=== PATIENT | male | born 2005 | race Caucasian/White ===

== ENCOUNTER 2025-09-29 08:19 | Emergency (ER) | payer BC, SELFPAY ==
--- NOTE | ~2025-09-29 | XR_ITS ---
CLINICAL HISTORY: L rib pain 4 view, chest and left ribs Comparison: None provided Findings: Up to 2 mm distracted likely acute (in the vicinity of the placed marker) oblique fracture of the posterolateral aspect of the left 11th rib. Otherwise no acute fracture. The lungs are unremarkable. IMPRESSION: Up to 2 mm distracted likely acute (in the vicinity of the placed marker) oblique fracture of the posterolateral aspect of the left 11th rib. This document has been electronically signed by: Griselda Singh MD on 09/29/2025 10:50:12
[2025-09-29 08:21] VITALS: BP 119/68; PULSE 75; RESP 14; TEMP 36.1; O2SAT 99; BMI 21.9
[2025-09-29 10:06] VITALS: BP 134/69; PULSE 74; RESP 16; O2SAT 98
--- NOTE | 2025-09-29 10:36 | ED_ITS ---
HPI - General Adult General Chief complaint: Back Pain/Injury Stated complaint: back pain Time Seen by Provider: 09/29/25 08:32 Source: patient and RN notes reviewed Mode of arrival: ambulatory Limitations: no limitations History of Present Illness ED Provider: Valerie Kumar PA-C HPI narrative: This is a 20-year-old male who presents emergency department accompanied by his with concerns of left-sided flank pain which started 2-3 weeks ago. Patient denies any recent trauma or injury. Denies any recent heavy lifting. Patient states that he has been in his usual state of health, no recent illness. Denies any recent travel, surgery, hospitalizations. No history of blood clots or cancer. He does not smoke tobacco. Patient denies any shortness for breath however is taking shallow breaths secondary to pain. Patient states that earlier today while he was coughing he felt a popping sensation and had increased pain. Denies any abdominal pain. Denies any fevers, chills, chest pain, nausea, vomiting or diarrhea. No other complaints or concerns at this time. MD complaint: Left-sided rib pain Onset (ago): week(s) Quality: sharp Pain Consistency: constant Relieving factors: rest Exacerbating factors: movement Treatments prior to arrival: none Related Data Previous Rx's ?Medication ?Instructions ?Recorded acetaminophen 500 mg tablet 500 mg PO Q6H PRN pain #30 tabs 09/29/25 (Tylenol Extra Strength) ibuprofen 600 mg tablet 600 mg PO Q6H PRN pain #30 t abs 09/29/25 lidocaine 5 % topical patch 1 patch topical DAILY #30 ea 09/29/25 Allergies Allergy/AdvReac Type Severity Reaction Status Date / Time shellfish derived Allergy Itching Verified 09/29/25 08:22 Review of Systems Review of Systems: Constitutional : No Fever, No Chills ENT/Mouth : No sore throat, No Rhinorrhea Eyes: No Eye Pain, No Swelling, No Redness Cardiovascular : No Chest Pain, No SOB Respiratory : No Cough, No Sputum Gastrointestinal : No Nausea, No Vomiting, No Diarrhea, No abdominal Pain Genitourinary : No Dysuria, No Hematuria Musculoskeletal : No joint pain, No Myalgias, No Joint Swelling Skin : No Skin Lesions Neuro : No Weakness, No Numbness, No Headache All other systems reviewed and are negative Yes all other systems are reviewed and are negative Constitutional: Constitutional: Reports as per [facility] Social History Social History Advance Directives: No Advance Directives Information Provided: Yes Physical Exam ED Vital Signs: Vital Signs - 24 hr 09/29/25 08:21 09/29/25 10:06 Temperature 97.0 F Pulse Rate 75 74 Respiratory Rate 14 16 Blood Pressure 119/68 134/69 Pulse Oximetry 99 98 Oxygen Delivery Method Room Air Room Air BMI result Body Mass Index 21.9 Const General: cooperative, comfortable and no acute distress Orientation/consciousness: patient oriented x3 Limitations: no limitations HENMT Head: Yes normal to inspection, Yes normocephalic and Yes atraumatic Ears: hearing grossly normal bilaterally General nose exam: Normal external nose present Face and sinus: Yes normal facial exam Mouth: Normal oral and palatal mucosa present, oropharynx normal and moist mucous membranes Throat: Yes posterior oropharynx normal Eyes General: appearance normal, both eyes and all related structures Eyelids: Yes eyelids normal Conjunctivae: conjunctivae normal Sclerae: sclerae normal Pupils: Equal, round and reactive pupils present EOM: EOMs intact bilaterally Neck Neck: Yes normal visual inspection, Yes full ROM and Yes no lymphadenopathy Lymphatic: no lymphadenopathy noted Chest Chest palpation & inspection: normal inspection of the chest Resp Effort & Inspection: normal respiratory effort and able to speak in complete sentences Auscultation: clear to auscultation bilaterally, no crackles, no rales, no rhonchi and no wheezes Cardio Rate: regular rate Rhythm: regular rhythm Heart sounds: S1 normal heart sound present and S2 normal heart sound present GI Other: Abdomen is soft, nontender, nondistended Inspection: Yes normal to inspection Back/Spine/Pelvis Other: Left anterior-posterior rib tenderness palpation, no bony step-off or deformity. Skin General skin exam: no rashes or lesions noted Trauma: no lacerations or abrasions Wounds: no wounds Neuro General: patient oriented x3 and moves all extremities Cranial nerves: Yes Equal, round and reactive pupils present Extrem General: Yes normal to inspection Right upper extremity: normal to inspection Left upper extremity: normal to inspection Right lower extremity: normal to inspection Left lower extremity: normal to inspection Medications Administered Discontinued Medications Generic Name Dose Route Start Last Admin Trade Name Freq PRN Reason Stop Dose Admin Acetaminophen 975 mg 09/29/25 10:07 09/29/25 10:18 Acetaminophen 325 Mg Tablet PO 09/29/25 10:08 975 mg ONCE ONE Administration Ibuprofen 600 mg 09/29/25 10:07 09/29/25 10:18 Ibuprofen 600 Mg Tablet PO 09/29/25 10:08 600 mg ONCE ONE Administration Medical Decision Making Medical Decision Making [facility] Narrative: This is a 20-year-old male who presents emergency department with complaints of left-sided rib pain which started 2-3 weeks ago, worsening over the last day. Patient states that he stays this morning and felt a popping sensation. On arrival, vital signs within normal limits. He is speaking full sentences under no acute distress. Denies taking any medications prior to his arrival. Patient with exquisite tenderness palpation along the left anterior and posterior ribs, no bony step-off or deformity. Differential diagnoses include rib fracture, contusion, sprain, strain, pneumothorax. Will medicate with Tylenol and ibuprofen. We will continue to closely monitor pending x-rays. 11:22 AM 09/29/2025 (Valerie Kumar PA-C): Patient re-evaluated, feeling much better after receiving ibuprofen and Tylenol. X-ray returned revealing a 2 mm distracted likely acute oblique fracture of the posterior lateral aspect of the 11th rib. Lungs are otherwise unremarkable. Patient has no shortness for breath, chest pain, in no evidence of pneumothorax. Lungs are clear to auscultation bilaterally. Discussed this with my attending physician, Dr. Callahan. Recommended continuing ibuprofen and Tylenol at home, ice, we will also provide patient with lidocaine patches. Differential Diagnosis Differential Diagnoses: The differential diagnosis associated with the presentation includes See above Admission/Observation Consideration of admission/observation: Escalation of care including admission/observation considered Lab Data [facility] Lab Attestation statement: I reviewed the patient's lab results. Radiology Impression Discussion of test interpretation with radiology: I have reviewed the radiologist's reading. External Record Review External record reviewed: Inpatient record, Office record, Outpatient record, Prior outpatient labs, Prior outpatient radiology, Primary care record and Outside ED record Discharge Plan Discharge Clinical Impression: Left rib fracture Patient Disposition: Home, Self-Care Instructions: Rib Fracture (ED) Additional Instructions: You were seen in the emergency department after developing left-sided rib pain. You have fractured your left 11th rib. Please rest, ice, and alternate between ibuprofen and or Tylenol as needed for pain and symptoms. When you have to cough or sneeze, brace yourself. You may do this by applying pressure on the side that is causing you pain, or using a pillow to gently apply pressure trying the coughing her sneezing episodes. No heavy lifting until your symptoms have resolved. You may also use lidocaine patches to roughly since can. This can provide you with some relief. Do not apply heat or ice directly to the lidocaine patches as this can cause thermal peralta. If any new or worsening symptoms occur including but not limited to severe shortness of breath, chest pain, fevers, please seek emergent care. We are unfortunately unable to accommodate any restrictions in regards to your work therefore please follow-up with a primary care urgent care facility if you need more additional restrictions for work. Prescriptions: New ibuprofen 600 mg tablet 600 mg PO Q6H PRN (Reason: pain) Qty: 30 0RF acetaminophen [Tylenol Extra Strength] 500 mg tablet 500 mg PO Q6H PRN (Reason: pain) Qty: 30 0RF lidocaine 5 % adhesive patch,medicated 1 patch topical DAILY Qty: 30 0RF Rx Instructions: leave on most painful area for up to 12 hrs Referrals: [facility] Primary Care, Dulce [Provider Group, Internal Medicine] [facility] Primary Care, Luiz [Provider Group, Internal Medicine] [facility] Primary Care, Julius Holm [Provider Group, Primary Care] Stand Alone Forms: Work/School Release Print Language: Kinyarwanda
[2025-09-29 12:09] VITALS: BP 134/69; PULSE 74; RESP 16; TEMP 36.7; O2SAT 98
== END 2025-09-29 12:10 | disposition home or self-care (01) ==
PROVIDERS: Emergency Provider Emergency Medicine Emergency Medical Services
DX: S22.32XA Fracture of one rib, left side, initial encounter for closed fracture (principal); R10.A2 Flank pain, left side; R07.89 Other chest pain; X58.XXXA Exposure to other specified factors, initial encounter; Y93.9 Activity, unspecified; Y92.9 Unspecified place or not applicable; Y99.9 Unspecified external cause status
CPT/HCPCS: 71101; 99283; 99284

== ENCOUNTER → 2025-09-29 10:07 | Outpatient (BNV) | payer BC, SELFPAY | PROVIDERS: Emergency Provider Emergency Medicine Emergency Medical Services; Visit Provider Radiology Diagnostic Radiology | DX: R07.89 Other chest pain (principal) | CPT/HCPCS: 71101 ==

== ENCOUNTER 2025-10-17 15:00 | Outpatient (AMB) | payer BC, SELFPAY ==
--- NOTE | 2025-10-17 15:13 | MHC.PC.OV ---
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 Transferring care from Dr Navas? (Unknown). Medical records have not been requested and have not received. 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 Accompanied by: Spouse Allergies shellfish derived Allergy (Verified 10/17/25 15:14) Itching Medication List - Last Reconciled 10/17/25 by Margarita Torres MD clotrimazole-betamethasone 1-0.05 % 1 appl topical BID 2 weeks escitalopram oxalate 10 mg PO DAILY Tobacco use date assessed: 10/17/25 Dental Screening Dental Screen Date: 10/17/25 Did you have a dental visit in the last 12 months?: No Did you have a dental problem in the last 6 months where you did not have access to dental care?: No Was dental information given to patient?: No HPI HPI Comments History of Present Illness Details Patient is a 20-year-old male presenting to establish care. Patient was seen in the ED on 09/29/2025 for left-sided flank pain, found to have acute oblique fracture of the posterior lateral aspect of the 11th rib on x-ray. He was discharged on ibuprofen 600 mg q.6 hours as needed and Tylenol as well as lidocaine patches. Patient states that he feels much better, pain resolved and does not use ibuprofen anymore. Patient reports history of anxiety on escitalopram, not sure about the dose but thinks it is 10 mg daily. The prescription was from an online therapy service which the patient has not attended for the past year. The patient has a surplus of the medication and stopped the subscription a few months ago. The patient also reports a possible diagnosis of ADHD or a similar condition as a child, which was not pursued by the patient's parents, and is now requesting a formal evaluation. The patient has had a painful, non-itchy rash on the inner thighs for a few months. but denies any pus or discharge. The patient has tried moisturizers without success. The patient also reports loud noises from the knees, particularly when squatting, but denies any associated pain or swelling. There is a remote history of a stretched tendon in the knee as a child, and the patient reports very infrequent nocturnal leg pain. Surgical history remarkable for tonsillectomy as a kid. Family history remarkable for maternal grandmother with hypertension, diabetes, heart attack and stroke. For social history, patient lives with his , works at [employer] and goes to college, studying computer science. Smokes marijuana every day from a vape pen, but denies tobacco use or illicit drug use. No alcohol use. [facility] Surgical History (Updated 10/17/25 @ 15:22 by DEIDRE Landa) History of tonsillectomy Social History (Updated 10/17/25 @ 15:22 by DEIDRE Landa) Housing: Apartment Alcohol intake: never Patient Tobacco Use Status: Never used Tobacco e-Cigarette/Vaping Use: Never Used Second Hand Smoke Exposure: No Substance Use Type: Marijuana service: No Current occupational status: employed Current occupation: [employer] Cognitive needs: No Hearing needs: No Vision needs: No Questionnaire PHQ-9 Over the last 2 weeks, how often have you been bothered by any of the following problems? 1. Little interest or pleasure in doing things: not at all 2. Feeling down, depressed, or hopeless: not at all 3. Trouble falling or staying asleep, or sleeping too much: not at all 4. Feeling tired or having little energy: not at all 5. Poor appetite or overeating: not at all 6. Feeling bad about yourself - or that you are a failure or have let yourself or your family down: not at all 7. Trouble concentrating on things, such as reading the newspaper or watching television: not at all 8. Moving or speaking so slowly that other people could have noticed. Or the opposite - being so fidgety or restless that you have been moving around a lot more than usual: not at all 9. Thoughts that you would be better off or of hurting yourself in some way: not at all Total score: 0 Depression Screening Interpretation: Negative Depression Screening Done: Yes Source: Developed by Melody Lemus.W. Chiki, Gerald Yates and colleagues, with an educational mandy from [employer]. Thrive Questionnaire Date Thrive assessed: 10/15/25 I am a: Patient What is your living situation today?: I have a steady place to live Within the past 12 months, did the food you bought not last and you didn't have the money to get more?: Never true Within the past 12 months, did you worry whether your food would run out before you got money to buy more?: Never true Do you have trouble paying for medicines?: No Do you have trouble getting transportation to medical appointments?: No Do you have trouble paying your heating and electricity bill?: No Do you have trouble taking care of your child, family member or friend?: No Do you have trouble with day-to-day activities such as bathing, preparing meals, shopping, managing finances, etc.?: No Are you currently unemployed and looking for a job?: No Are you interested in more education?: No Please select the resources that you would like help with: None Currently or been in a relationship where the following occur: No concerns reported THRIVE Score: 0 AUDIT C Alcohol Use Questionnaire (AUDIT-C) 1. How often do you have a drink containing alcohol?: Monthly or less 2. How many drinks containing alcohol do you have on a typical day when you are drinking?: 1 or 2 3. How often do you have six or more drinks on one occasion?: Never Total Score: 1 NURIA-7 AMB Questionnaire NURIA-7 Date NURIA - 7 assessed: 10/17/25 Feeling nervous, anxious, or on edge: 3 = Nearly every day Not being able to stop or control worryin = Nearly every day Worrying too much about different things: 3 = Nearly every day Trouble relaxin = Nearly every day Being so restless that it is hard to sit still: 3 = Nearly every day Becoming easily annoyed or irritable: 3 = Nearly every day Feeling afraid as if something awful might happen: 3 = Nearly every day Total NURIA-7 score (0-4 normal; 5-9 mild; 10-14 moderate; 15-21 severe): 21 Source: Developed by Drs. Raffi Lizarraga, Gerald Galindo and colleagues, with an educational mandy from [employer]. Physical exam (Primary Care) Vital Signs: Last Vital Signs Temp 97.1 F 10/17/25 15:15 Pulse 74 10/17/25 15:15 BP 120/78 10/17/25 15:15 Pulse Ox 98 10/17/25 15:15 Oxygen Delivery Method Room Air 10/17/25 15:15 General: Well-appearing, alert, oriented ?3, in no acute distress. Cardiovascular: RRR, S1-S2 appreciated, no murmurs, rubs or gallops. Respiratory: Lungs clear to auscultation bilaterally, no wheezes, rales or rhonchi. Abdomen: Soft, nontender, nondistended. Normoactive bowel sounds. Knees: Bilateral knees symmetrical, no swelling or erythema noted. Upon squatting, loud cracking noise elicited. Skin: Erythematous rash in bilateral inguinal folds, no vesicles, bumps or lumps or pus noted BMI result Body Mass Index 23.5 Tobacco/Smoking Status: Tobacco use Status Tobacco use date assessed 10/17/25 10/17/25 15:23 Patient Tobacco Use Status Never used Tobacco 10/17/25 15:23 e-Cigarette/Vaping Use Never Used 10/17/25 15:23 PHQ-9: PHQ-9 Score PHQ-9: Total score 0 10/17/25 15:23 Depression Screening Interpretation: Negative Thrive Assessment: Date of Thrive Assessment Date Thrive assessed 10/15/25 10/17/25 15:23 Currently or been in a relationship where the following occur: No concerns reported Coding Level of Care Code New Pt Level 4 (72077) Diagnoses Establishing care with new doctor, encounter for Z76.89 Groin rash R21 Anxiety F41.9 Knee pain, unspecified chronicity, unspecified laterality M25.569 Chronicity: unspecified Laterality: unspecified laterality Assessment & Plan Assessment & Plan (1) Establishing care with new doctor, encounter for: Code(s): Z76.89 - Persons encountering health services in other specified circumstances Plan: Patient presenting to establish care (2) Groin rash: Code(s): R21 - Rash and other nonspecific skin eruption Category: Medical Plan: The patient presents with a painful rash on the inner thighs for months, without vesicles, bullae or pus. Consistent with dermatitis, possibly from shaving, with a potential superimposed fungal infection. Start clotrimazole-betamethasone cream to apply twice daily for 2 weeks. Keep area dry and clean at all times (3) Anxiety: Code(s): F41.9 - Anxiety disorder, unspecified Category: Medical Plan: Patient reports that his anxiety is manageable, currently on escitalopram 10 mg daily. The patient also reports a possible diagnosis of ADHD or a similar condition as a child, which was not pursued by the patient's parents, and is now requesting a formal re-evaluation. Psychiatry referral provided. (4) Knee pain: Code(s): M25.569 - Pain in unspecified knee Qualifiers: Chronicity: unspecified Laterality: unspecified laterality Qualified Code(s): M25.569 - Pain in unspecified knee Plan: Patient presenting with bilateral knee crackling upon squatting, with occasional pain. Denies swelling, no knee surgeries, no trauma to the knee. Denies hyperlaxity of other joints. An x-ray of the knees ordered for further evaluation. Orders: Orders XR Knee Jesse 3V Today M25.561 - Pain in right knee, M25.562 - Pain in left knee Complete Blood Count Auto Diff Today Z00.00 - Encounter for general adult medical examination without abnormal findings Lipid Panel with Reflex Today Z00.00 - Encounter for general adult medical examination without abnormal findings HIV Ab/Ag Today Z11.4 - Encounter for screening for human immunodeficiency virus [HIV] Comprehensive Met. Panel Today Z00.00 - Encounter for general adult medical examination without abnormal findings Hepatitis B Core Antibody Today Z11.59 - Encounter for screening for other viral diseases Referrals Psychiatry Referral F90.9 - Attention-deficit hyperactivity disorder, unspecified type Medications: New clotrimazole-betamethasone 1-0.05 % 1 appl topical BID 15 grams 0RF tinea 2 weeks Discontinued acetaminophen (Tylenol Extra Strength) Discontinued Reason: Patient Completed Course 500 mg PO Q6H PRN 30 tabs 0RF pain lidocaine 5% leave on most painful area for up to 12 hrs Discontinued Reason: Patient Completed Course 1 patch topical DAILY 30 ea 0RF ibuprofen Discontinued Reason: Patient Completed Course 600 mg PO Q6H PRN 30 tabs 0RF pain
[2025-10-17 15:15] VITALS: BP 120/78; PULSE 74; TEMP 36.2; O2SAT 98; BMI 23.5
== END 2025-10-17 15:53 | disposition home or self-care (01) ==
LOC: HO.HMCH 15:00
PROVIDERS: Visit Provider Student in an Organized Health Care Education/Training Program
DX: Z76.89 Persons encountering health services in other specified circumstances (principal); R21 Rash and other nonspecific skin eruption; F41.9 Anxiety disorder, unspecified; M25.569 Pain in unspecified knee

== ENCOUNTER 2025-10-22 12:24 | Outpatient (REF) | payer BC, SELFPAY ==
--- NOTE | ~2025-10-22 | XR_ITS ---
Exam: X-ray, bilateral knees.XR KNEE 3 VIEWS BILATERAL TECHNIQUE: Three views lower extremity joint, bilateral knees INDICATION: pain, knee cracks COMPARISON: None available. FINDINGS: RIGHT KNEE: Joint spaces are preserved. There are no osteophytes. There is a small volume of joint fluid No acute abnormality is evident. LEFT KNEE: Joint spaces are preserved. There are no osteophytes. There is no joint effusion. No acute abnormality is evident. XR/XR Knee Jesse 3V IMPRESSION: Right knee: Unremarkable right knee Left knee: Unremarkable left knee Electronically signed by: Chandana Palacios MD 10/22/2025 01:03 PM [facility]
[2025-10-22 12:41] LABS: MANUAL DIFF FLAG NO
[2025-10-22 12:54] LABS: Hematocrit 47.6 % (42.0-52.0); Hemoglobin 15.5 g/dl (14.0-18.0); Imm Gran Abs Auto 0.03 X10*3/uL (0.00-0.03); Imm Gran Pct Auto 0.4 % (0.0-0.4); Lymphocytes Absolute Auto 2.8 X10*3/uL (1.2-4.9); Mean Corpuscular HGB Conc 32.6 g/dl (31.0-36.0); Mean Corpuscular Hemoglobin 28.0 pg (27.0-33.0); Mean Corpuscular Volume 85.9 fL (80.0-98.0); NRBC Abs Auto 0.000 X10*3/uL (0.0-0.012); NRBC Pct Auto 0.0 /100WBC (0.0-0.2); Platelet Count 338 X10*3/uL (160-400); Red Blood Count 5.54 X10*6/uL (4.60-5.80); White Blood Count 7.8 X10*3/uL (4.8-10.8)
[2025-10-22 13:38] LABS: Alanine Aminotransferase 22 U/L (0-40); Albumin Level 4.9 g/dL (3.5-5.0); Alkaline Phosphatase 75 U/L (39-117); Anion Gap 11 (12-20); Aspartate Amino Transferase 27 U/L (5-37); Blood Urea Nitrogen 13 mg/dL (9-16); Calcium 9.6 mg/dL (8.4-10.2); Carbon Dioxide 28 mmol/L (22-29); Chloride 106 mmol/L (96-108); Cholesterol 175 mg/dL (<200); Estimated Glomerular Filt Rate > 60; HDL Cholesterol 51 mg/dL (>40); Potassium 4.4 mmol/L (3.3-5.1); Sodium 141 mmol/L (135-145); Total Protein 7.2 g/dL (6.5-8.0); Triglycerides 86 mg/dL (<150)
[2025-10-22 15:49] LABS: Reflex LDLD? No
[2025-10-23 05:56] LABS: HBc Num1 0.07 S/CO (0.00-0.79); HIV Num 1 0.06 S/CO (0.00-0.99)
== END 2025-10-22 12:25 | disposition home or self-care (01) ==
LOC: HO.XRAY 12:24
PROVIDERS: PCP Student in an Organized Health Care Education/Training Program; Visit Provider Student in an Organized Health Care Education/Training Program
DX: Z00.00 Encounter for general adult medical examination without abnormal findings (principal); Z01.84 Encounter for antibody response examination; Z11.4 Encounter for screening for human immunodeficiency virus [HIV]; M25.561 Pain in right knee; M25.562 Pain in left knee; Z13.6 Encounter for screening for cardiovascular disorders
CPT/HCPCS: 36415; 73562; 80053; 80061; 85025; 86704; 87389

== ENCOUNTER → 2025-10-22 12:39 | Outpatient (BNV) | payer BC, SELFPAY | PROVIDERS: PCP Student in an Organized Health Care Education/Training Program; Visit Provider Radiology Diagnostic Radiology | DX: M25.561 Pain in right knee (principal); M25.562 Pain in left knee | CPT/HCPCS: 73562 ==